=== PATIENT | male | born 1990 ===

== ENCOUNTER 2024-02-15 12:34 | Emergency (ER) | payer BC ==
[2024-02-15] MEDS: Ketorolac 30 MG/ML SDV IM ONE (14:24)
[2024-02-15] MEDS: Ondansetron 4 MG Tab.DIS PO ONE (14:25)
[2024-02-15] MEDS: Acetaminophen 500 MG Tab PO ONE (15:41)
== END 2024-02-15 15:49 | disposition home or self-care (01) ==
LOC: MW.ED 12:34
DX: B34.9 Viral infection, unspecified (principal); Z75.8 Other problems related to medical facilities and other health care
CPT/HCPCS: 87428; 96372; 99284; A9270; J1885